=== PATIENT | female | born 2000 | race Caucasian/White ===

== ENCOUNTER 2023-08-19 22:11 | Emergency (ER) | payer SELFPAY ==
[~2023-08-19] VITALS: Ht 160 cm; Wt 64.0 kg
[2023-08-19 22:21] VITALS: BP 133/90; PULSE 112; RESP 20; O2SAT 100
[2023-08-19 22:45] VITALS: TEMP 97.8
[2023-08-19] MEDS: ACETAMINOPHEN 325MG TABLET PO ONE (22:45)
[2023-08-19] MEDS: METOCLOPRAMIDE HCL 10MG TABLET PO ONE (22:45)
[2023-08-19 23:18] LABS: HCG SCREEN NEGATIVE
[2023-08-20] MEDS ORDERED: BACL-141 MT (03:34)
[2023-08-20] MEDS ORDERED: ACET-2708 MT (03:34)
== END 2023-08-20 04:40 | disposition home or self-care (01) ==
LOC: ER 22:11
DX: S13.4XXA Sprain of ligaments of cervical spine, initial encounter (principal); F19.90 Other psychoactive substance use, unspecified, uncomplicated; Z88.8 Allergy status to other drugs, medicaments and biological substances; V89.2XXA Person injured in unspecified motor-vehicle accident, traffic, initial encounter; Y93.89 Activity, other specified; Y92.89 Other specified places as the place of occurrence of the external cause; Y99.8 Other external cause status
CPT/HCPCS: 84703; 70450; 72125; 99284; J8597; Z7610 ×2

== ENCOUNTER 2023-08-23 20:31 | Emergency (ER) | payer SELFPAY ==
[~2023-08-23] VITALS: Ht 157.5 cm; Wt 64.0 kg
[~2023-08-23 20:31] MED LIST: ACET-2708 MT; BACL-141 MT
[2023-08-23 20:53] VITALS: BP 102/66; PULSE 100; RESP 16; TEMP 98.5; O2SAT 100
== END 2023-08-23 21:16 | disposition home or self-care (01) ==
LOC: ER 20:31
DX: M54.2 Cervicalgia (principal)
CPT/HCPCS: 99281